=== PATIENT | female | born 1935 | race Caucasian/White ===

== ENCOUNTER 2021-11-11 12:27 | Emergency (ER) | payer MEDICARE, SELFPAY ==
[2021-11-11 13:15] VITALS: BP 140/52; PULSE 76; RESP 18; TEMP 37.1; O2SAT 95; BMI 31.1
--- NOTE | 2021-11-11 13:49 | HMH.EDUTC ---
[facility] [place] Clinical Impression: URI (upper respiratory infection) Qualifiers: URI type: unspecified URI Qualified Code(s): J06.9 - Acute upper respiratory infection, unspecified Disposition: Home, Self-Care Condition on Discharge: Good Instructions: Sinusitis, Acute Bronchitis, DI for Sinusitis Additional Instructions: ? Start antibiotic today. Be sure to complete entire prescription even if feeling better ? Monitor temp. Tylenol every 4 hours as needed and / or ibuprofen every 6 hours as needed ( As long as your primary care physician has told you that it ok to take both. For fever/aches/pains ER if no less than 101 despite Tylenol or Motrin ? Humidifier/vaporizer or hot steamy shower *Tessalon Perles will not cause drowsiness but use at bedtime to help stop cough so that you may get some rest. *Start steroid today. Helps with inflammation therefore, cough and wheezing. Follow directions on the package. Reviewed side effects. Patient reports taking them before. Follow up IMMEDIATELY for new or worsening of symptoms OR no noticeable improvement over the next 48-72 hours. 911 immediately for any life threatening symptoms such as chest pain or difficulty breathing Prescriptions: Benzonatate [Benzonatate 100mg cap] 100 mg PO Q8HP PRN #15 cap PRN Reason: Cough Transmission Status: Pending to [facility] # predniSONE [Deltasone 10mg tablet] 10 mg PO BID 5 Days #10 tab Transmission Status: Pending to [facility] # Fluticasone Propionate [Flonase 50mcg nasal spray 16gm] 1 spr NS DAILY #1 each Transmission Status: Pending to [facility] # Cefdinir [Omnicef 300mg Capsule] 300 mg PO BID #20 cap Transmission Status: Pending to [facility] # Referrals: Provider,Referral, MD [Primary Care Provider] - As needed Time of Disposition: 14:08 Medical Decision Making - Johnson Inquiry Pt receiving controlled substance: No Johnson was queried for this patient: No Vital Signs: 11/11/21 13:15 Temperature 98.7 F Temperature Source Oral Pulse Rate [Left Brachial] 76 Respiratory Rate 18 Blood Pressure [Left Arm] 152/121 H Blood Pressure Mean [Left Arm] 131 Blood Pressure Source [Left Arm] Automatic Cuff Blood Pressure Position [Left Arm] Sitting 02 Sat by Pulse Oximetry 95 Oxygen Delivery Method Room Air Medical Decision Narrative: Patient states that she has taken Prednisone in the past without complications or reactions discussed CXR and patient declined at this time Medication discussed with pharmacy [facility] [place] - General Stated complaint: cough, congestion Time Seen by Provider: 11/11/21 13:49 Mode of Arrival: Ambulatory Source of Information: Patient, Relative Limitations: No Limitations Description of Symptoms (Recalled from Triage Doc. by RN): PATIENT C/O DRY COUGH AND CHEST CONGESTION FOR APPROX 1.5 WEEKS HEENT Symptoms (Recalled from RN notes): No Resp Symptoms (Recalled from RN notes): Yes Skin Symptoms (Recalled from RN notes): No MS Symptoms (Recalled from RN notes): No Functional Status (Recalled from RN notes): WNL - History of Present Illness Provider Complaint: Patient state that she has been having sinus congestion, drainage in the back of her throat and dry cough State that she has been having for over a week States that she isnt coughing anything up and feels like it is in her sinuses but daughter brought her in to get checked States that she thinks she may have a sinus infection she is in from [place] - Related Data Previous Rx's Medication Instructions Recorded Benzonatate [Benzonatate 100mg 100 mg PO Q8HP PRN #15 cap 11/11/21 cap] Cefdinir [Omnicef 300mg Capsule] 300 mg PO BID #20 cap 11/11/21 Fluticasone Propionate [Flonase 1 spr NS DAILY #1 each 11/11/21 50mcg nasal spray 16gm] predniSONE [Deltasone 10mg tablet] 10 mg PO BID 5 Days #10 tab 11/11/21 Allergies Allergy/AdvReac Type Severity Reaction Status Date / Gerald
[2021-11-11 14:12] VITALS: BP 140/52; PULSE 76; RESP 18; TEMP 37.1; O2SAT 95
--- NOTE | 2021-11-23 | IR_ITS ---
APPROVED REPORT Patient Location: Emergent Lingo Cleaner: MERVAT Vaughn RT (R) PROCEDURES Left heart catheterization Left ventriculogram Selective coronary angiogram Drug-eluting stent deployment to the mid dominant right coronary INDICATION Acute inferior ST elevation myocardial infarction, Coronary artery disease Informed consent was obtained prior to the procedure. COMPLICATIONS NONE Estimated Blood Loss: LESS THAN 10 ML TECHNIQUE One percent lidocaine used to anesthetize the right anterior aspect of the wrist. The right radial artery was accessed via the Seldinger technique. A 6 Colombian sheath was placed in the right radial artery. 2.5 mg of verapamil, 800 mcg of nitroglycerin, 1mg Lidocaine and 5000 U Heparin were given through the arterial sheath. A Petta catheter was used to perform right coronary angiography. Therapeutic heparin had already been administered. A Choice PT extra-support wire was placed distally through the occlusion and a 3 mm x 18 mm resolute Christopher stent was deployed at 24 ryan reducing the critical stenosis. An additional 3 mm x 12 mm resolute Christopher stent was placed distal to the first stent yet still overlapping it and deployed at 18 ryan. The balloon was brought back and deployed at 28 ryan to post dilate and mesh the 2 stents. UMAIR I flow was present at the beginning of the procedure with UMAIR-3 flow at the end of the procedure. The same catheter was then used to perform left coronary artery angiography as well as left heart catheterization and left ventriculogram. At the end of the procedure the apparatus was removed the sheath was removed good hemostasis was achieved using TR banding patient was transferred to the postoperative area stable condition ANGIOGRAPHIC RESULTS The left main artery Normal The left anterior descending artery Has mild proximal 10% stenosis with a mid vessel concentric 20% stenosis. The circumflex artery Is a nondominant vessel and has proximal and mid vessel 30% stenoses The right coronary artery Is a large dominant vessel and has proximal tandem 30% stenoses with a focal subtotal occlusion of mid vessel accompanied by UMAIR I flow. At the end of the procedure the proximal 30% stenoses were present with complete resolution of the occlusion reduced to 0% accompanied by UMAIR-3 flow The JOYNER ventriculogram reveals Preserved at 50% The left ventricular end-diastolic pressure 20 mmHg IMPRESSION Acute inferior ST elevation myocardial infarction Successful stenting of the mid dominant right coronary artery subtotal occlusion reduced to 0% with 2 contiguous drug-eluting stents Preserved ejection fraction Borderline elevated LVEDP PLAN 1. Plavix and aspirin 2. LDL less than 55 3. Supportive care for the next 48 hours 4. Risk factor modification 5. Avoidance of tobacco products 6. Cardiac rehabilitation Electronically signed by : Robson Grande MD 11/23/2021 12:22:26
[2021-11-23 12:41] VITALS: BP 124/75; PULSE 51; PULSE 78; RESP 20; TEMP 36.6; O2SAT 87
[2021-11-23 13:45] LABS: CATHL Activated Clotting Time > 400 SEC (74-125)
[2021-11-24 06:42] LABS: Basophils # 0.1 K/mm3 (0-0.2); Basophils % 0.7 % (0.1-2.0); Eosinophils # 0.2 K/mm3 (0.0-0.4); Eosinophils % 3.3 % (0.1-12.0); Hematocrit 37.2 % (37.0-47.0); Hemoglobin 12.4 g/dL (12.2-16.2); Lymphocytes # 1.1 K/mm3 (0.7-4.5); Mean Corpuscular HGB Conc 33.2 g/dL (31.8-35.4); Mean Corpuscular Hemoglobin 30.6 pg (27.0-31.2); Mean Corpuscular Volume 92.2 fl (81-99); Mean Platelet Volume 8.3 fl (7.4-10.4); Monocytes # 0.5 K/mm3 (0.1-1.0); Monocytes % 6.3 % (1.7-9.3); Neutrophils # 5.3 K/mm3 (1.8-7.8); Neutrophils % 73.7 % (37.0-80.0); Platelet Count 410 K/mm3 (142-424); Red Blood Count 4.04 M/mm3 (4.20-5.40); Red Cell Distribution Width 13.3 % (11.5-17.5); White Blood Count 7.1 K/mm3 (4.8-10.8)
[2021-11-24 06:45] LABS: Chloride 111 mmol/L (98-107); Potassium 3.4 mmoL/L (3.5-5.1); Sodium 140 mmol/L (136-145)
[2021-11-24 06:48] LABS: Anion Gap 8.4 mEq/L (5-15); Blood Urea Nitrogen 7 mg/dl (7-17); Calcium 7.6 mg/dl (8.4-10.2); Carbon Dioxide 24 mmol/L (22.0-30.0); Creatinine Clearance Estimated 48 mL/min (50-200); Estimated Glomerular Filt Rate 95 ml/min (>60); GFR (African American) 115 ML/MIN (>60); Glucose 90 mg/dl (74-100)
== END 2021-11-11 14:15 | disposition home or self-care (01) ==
PROVIDERS: Internal Medicine; Emergency Provider Nurse Practitioner
DX: J06.9 Acute upper respiratory infection, unspecified (principal)
CPT/HCPCS: G0463; 80048; 85025; 85347; 99202; J1644; Q9967

== ENCOUNTER 2021-11-23 12:34 | Inpatient (IN) | payer MEDICARE, SELFPAY ==
[2021-11-23] VITALS (17 sets, daily range): BP systolic 114–132; BP diastolic 44–72; PULSE 59–86; RESP 16–20; TEMP 36.6–36.9; O2SAT 89–95; BMI 29.2; BMI 29.4
--- NOTE | 2021-11-23 12:43 | HMH.CNCARD ---
History of Present Illness Consult date: 11/23/21 Requesting physician: Ankur Conn Consult reason: chest pain Chief complaint: chest pain History of present illness: This is an 86-year-old white female who presented with complaints of chest pain. The patient was having heaviness in her chest that was radiating down her bilateral arms and causing numbness. It was associated with shortness of breath. The patient states that this was severe and kept taking her breath away. She called for her daughter and her daughter called EMS. Once she was picked up by EMS the patient had an EKG that was an abnormal and showed a left bundle branch block. The patient was taken directly from EMS to the cardiac catheterization laboratory. She denies any fever, chills, nausea, vomiting, diarrhea, PND or orthopnea. [facility] History I have reviewed the patient's past medical history: Yes Medical History: Reports:: Cerebrovascular Accident, Hyperlipidemia Denies:: Diabetes Mellitus Type 2, Hypertension, Myocardial Infarction *Have you ever received a pneumonia vaccine?: No *Have you received a flu vaccine this season?: No - *Social History Smoking Status: Unknown if ever smoked Alcohol Intake: never *Occupational Status:: other *Travel in the last 8 weeks: Inside the [facility] Family Hx:: Unable to obtain Meds Home Medications Medication Instructions Recorded Confirmed Type Benzonatate [Benzonatate 100mg 100 mg PO Q8HP PRN #15 cap 11/11/21 Rx cap] Cefdinir [Omnicef 300mg Capsule] 300 mg PO BID #20 cap 11/11/21 Rx Fluticasone Propionate [Flonase 1 spr NS DAILY #1 each 11/11/21 Rx 50mcg nasal spray 16gm] predniSONE [Deltasone 10mg tablet] 10 mg PO BID 5 Days #10 tab 11/11/21 Rx Allergies Allergy/AdvReac Type Severity Reaction Status Date / Time No Known Allergies Allergy Verified 11/11/21 13:34 Exam - Constitutional no acute distress, obese - *Routine HEENT Exam Head: Present: normocephalic, atraumatic Eye: Present: EOMI, PERRL ENT: Present: mucous membranes moist - *Routine Neck Exam Present: supple, full ROM, normal carotid upstroke. Absent: JVD, carotid bruit, lymphadenopathy - *Routine Respiratory Exam Present: CTA bilaterally - *Routine Cardiovascular Exam Present: RRR, Normal S1, Normal S2. Absent: murmur - *Routine Abdominal Exam Present: soft, normoactive bowel sounds. Absent: tenderness, distended - *Routine Extremities Exam Present: full ROM, pulses intact, normal capillary refill. Absent: cyanosis, clubbing, edema - *Routine Skin Exam Present: intact, warm. Absent: erythema, rash - *Routine Neurological Exam Present: alert, oriented X3, CN II-XII intact. Absent: sensory deficit, motor deficit - Routine Psychiatric Exam Present: normal affect, normal thought process Review of Systems - Review of Systems Review of systems:: pertinent systems reviewed and negative unless documented below - *Cardiovascular Reports chest pain, Reports chest pain at rest, Reports shortness of breath, Reports shortness of breath with activity, Reports radiating jaw, neck or arm pain Assessment and Plan (1) STEMI (ST elevation myocardial infarction) Status: Acute Category: Medical Code(s): I21.3 - ST elevation (STEMI) myocardial infarction of unspecified site (2) LBBB (left bundle branch block) Status: Acute Category: Medical Code(s): I44.7 - Left bundle-branch block, unspecified (3) HLD (hyperlipidemia) Status: Acute Category: Medical Code(s): E78.5 - Hyperlipidemia, unspecified (4) CVA (cerebral vascular accident) Status: Acute Category: Medical Code(s): I63.9 - Cerebral infarction, unspecified - Assessment and plan all Dx Assessment and Plan for all problems:: Plan: 1. The patient is admitted to the hospital directly to the cardiac catheterization laboratory secondary to chest pain and heaviness. The patient's EKG showed a left bundle branch block which is con
[2021-11-23 12:54] LABS: Influenza A, PCR Not Detected (NotDetected); Influenza B, PCR Not Detected (NotDetected)
[2021-11-23 13:08] LABS: Anion Gap 10.8 mEq/L (5-15); Blood Urea Nitrogen 11 mg/dl (7-17); Calcium 7.3 mg/dl (8.4-10.2); Carbon Dioxide 25 mmol/L (22.0-30.0); Chloride 106 mmol/L (98-107); Creatinine Clearance Estimated 46 mL/min (50-200); Estimated Glomerular Filt Rate 95 ml/min (>60); GFR (African American) 115 ML/MIN (>60); Glucose 107 mg/dl (74-100); Sodium 139 mmol/L (136-145)
[2021-11-23 13:10] LABS: Basophils % 0.7 % (0.1-2.0); Eosinophils # 0.2 K/mm3 (0.0-0.4); Eosinophils % 3.5 % (0.1-12.0); Hematocrit 35.3 % (37.0-47.0); Hemoglobin 11.7 g/dL (12.2-16.2); Lymphocytes # 0.8 K/mm3 (0.7-4.5); Lymphocytes % 13.1 % (10-50); Mean Corpuscular HGB Conc 33.2 g/dL (31.8-35.4); Mean Corpuscular Hemoglobin 30.5 pg (27.0-31.2); Mean Platelet Volume 8.6 fl (7.4-10.4); Monocytes # 0.5 K/mm3 (0.1-1.0); Neutrophils # 4.5 K/mm3 (1.8-7.8); Neutrophils % 74.7 % (37.0-80.0); Platelet Count 386 K/mm3 (142-424); Potassium 2.8 mmoL/L (3.5-5.1); Red Blood Count 3.84 M/mm3 (4.20-5.40); Red Cell Distribution Width 13.2 % (11.5-17.5)
[2021-11-23 13:19] LABS: Alanine Aminotransferase 18 U/L (12-78); Albumin Level 2.6 g/dl (3.5-5.0); Alkaline Phosphatase 50 U/L (38-126); Aspartate Amino Transferase 29 U/L (14-36); Bilirubin,Direct 0.1 mg/dl (0.0-0.4); Bilirubin,Indirect 0.6 mg/dL (0.0-0.9); Bilirubin,Total 0.7 mg/dl (0.2-1.3); Bilirubin,Unconjugated 0.7 mg/dL (0.0-1.1); Total Protein,Serum 5.2 g/dl (6.3-8.2)
[2021-11-23 13:32] LABS: Troponin I 0.11 ng/ml (0.00-0.034)
[2021-11-23 13:36] LABS: Coronavirus 19, PCR Detected (NotDetected)
[2021-11-23 13:50] LABS: Thyroid Stimulating Hormone 1.16 uIU/mL (0.465-4.68)
--- NOTE | 2021-11-23 17:13 | HMH.HP ---
*Admission Date: 11/23/21 *Chief complaint: myocardial infarction *History of present illness: This is an 86-year-old white female who presented with complaints of chest pain. The patient was having heaviness in her chest that was radiating down her bilateral arms and causing numbness. It was associated with shortness of breath. The patient states that this was severe and kept taking her breath away. She called for her daughter and her daughter called EMS. Once she was picked up by EMS the patient had an EKG that was an abnormal and showed a left bundle branch block. The patient was taken directly from EMS to the cardiac catheterization laboratory. She denies any fever, chills, nausea, vomiting, diarrhea, PND or orthopnea. She has no cardiac history. She has some mild dementia. She was taken to the geoscience laboratory technician [facility] shows: The left main artery Normal The left anterior descending artery Has mild proximal 10% stenosis with a mid vessel concentric 20% stenosis. The circumflex artery Is a nondominant vessel and has proximal and mid vessel 30% stenoses The right coronary artery Is a large dominant vessel and has proximal tandem 30% stenoses with a focal subtotal occlusion of mid vessel accompanied by UMAIR I flow. At the end of the procedure the proximal 30% stenoses were present with complete resolution of the occlusion reduced to 0% accompanied by UMAIR-3 flow The JOYNER ventriculogram reveals Preserved at 50% The left ventricular end-diastolic pressure 20 mmHg IMPRESSION Acute inferior ST elevation myocardial infarction Successful stenting of the mid dominant right coronary artery subtotal occlusion reduced to 0% with 2 contiguous drug-eluting stents Preserved ejection fraction Borderline elevated LVEDP PLAN 1. Plavix and aspirin 2. LDL less than 55 3. Supportive care for the next 48 hours 4. Risk factor modification 5. Avoidance of tobacco products 6. Cardiac rehabilitation 1. Start Plavix and Asa for DAPT. 2. Telemetry for 48 hours post STEMI. Original Note: Pt also just tested positive for covid. She was treated for URI last week, just finished her course. I hear a few subtle scattered crackles in both lung huitron. We will be very conservative regarding her management. She is currently pain free and resting comfortably. Review of home meds includes ditropan, which can be assoc w/dementia. We will stop this. [facility] History Medical History: Reports:: Cerebrovascular Accident, Hyperlipidemia Denies:: Diabetes Mellitus Type 2, Hypertension, Myocardial Infarction *Have you ever received a pneumonia vaccine?: Yes *Have you received a flu vaccine this season?: Yes - *Social History Smoking Status: Former smoker Alcohol Intake: never *Occupational Status:: retired Housing: house Household Members: none *Travel in the last 8 weeks: Inside the [place] Family Hx:: Unable to obtain Review of Systems - Constitutional Reports lack of energy - Eyes Denies change in vision - ENT Denies abnormal hearing - *Cardiovascular Reports chest pain, Reports chest pain with activity, Reports shortness of breath, Reports shortness of breath with activity - *Respiratory Reports chest congestion, Reports cough, Reports shortness of breath - *Gastrointestinal Denies abdominal pain - *Genitourinary Denies difficulty urinating - *Musculoskeletal Denies abnormal walking - Integumentary/Breasts Denies yellowing of the skin - *Neurologic Reports confusion - Psychiatric Reports behavioral changes - Endocrine Denies cold intolerance - Hematologic/Lymphatic Denies easy bleeding, Denies easy bruising - Allergic/Immunologic Denies hives Meds Home Medications Medication Instructions Recorded Confirmed Type Amlodipine Besylate 5 mg PO DAILY 11/23/21 11/23/21 History Atorvastatin Calcium [Lipitor 40mg 40 mg PO HS 11/23/21 11/23/21 History Tab] Clopidogrel Bisulfate [Plavix 75mg 75 mg PO
--- NOTE | 2021-11-23 17:40 | XR_ITS ---
PROCEDURE INFORMATION: Exam: XR Chest Exam date and time: 11/23/2021 5:40 PM Age: 86 years old Clinical indication: Shortness of breath; Additional info: Covid TECHNIQUE: Imaging protocol: XR of the chest. Views: 1 view. Total images: 1 COMPARISON: No relevant prior studies available. FINDINGS: Lungs: Pulmonary vasculature grossly normal. Multifocal alveolar opacities in the lung bases and peripheral right upper lobe concerning for multifocal pneumonia. Pleural spaces: Slightly blunted right lateral costophrenic angle which may be related to local airspace disease or small basilar effusion. No pneumothorax. Heart/Mediastinum: Heart size within normal limits for portable AP technique. No tracheal/mediastinal shift. Vasculature: The aorta demonstrates mild ectasia/tortuosity and mild calcific atherosclerosis. Bones/joints: No acute osseous abnormalities are identified. Organs: Probable cholecystectomy clips in the right upper quadrant. IMPRESSION: Multifocal bilateral peripheral alveolar opacities concerning for multifocal pneumonia.
[2021-11-23 18:21] LABS: Chloride 106 mmol/L (98-107)
[2021-11-23 18:22] LABS: Potassium 3.6 mmoL/L (3.5-5.1); Sodium 140 mmol/L (136-145)
[2021-11-23 18:24] LABS: Alanine Aminotransferase 27 U/L (12-78); Alkaline Phosphatase 59 U/L (38-126); Anion Gap 11.6 mEq/L (5-15); Aspartate Amino Transferase 43 U/L (14-36); Bilirubin,Total 0.6 mg/dl (0.2-1.3); Blood Urea Nitrogen 10 mg/dl (7-17); Carbon Dioxide 26 mmol/L (22.0-30.0); Creatinine Clearance Estimated 44 mL/min (50-200); Estimated Glomerular Filt Rate 79 ml/min (>60); GFR (African American) 96 ML/MIN (>60)
[2021-11-23 18:25] LABS: Albumin Level 3.2 g/dl (3.5-5.0); Albumin/Globulin Ratio 1.1 (1.1-1.8); Calcium 8.1 mg/dl (8.4-10.2); Globulin 2.8 g/dL (1.3-3.2); Glucose 201 mg/dl (74-100)
[2021-11-23 20:09] LABS: Troponin I 1.54 ng/ml (0.00-0.034)
[2021-11-24] VITALS (7 sets, daily range): BP systolic 112–156; BP diastolic 56–89; PULSE 67–77; RESP 16–18; TEMP 36.6–37.1; O2SAT 93–95
[2021-11-24 01:58] LABS: Troponin I 2.55 ng/ml (0.00-0.034)
--- NOTE | 2021-11-24 02:42 | ECG_ITS ---
APPROVED REPORT Exam: Resting ECG HR:78 bpm ECG Measurements Heart Rate 78 AXES MI 176 P 60 QRSd 120 QRS 2 QT 434 T 45 QTc 494 Conclusion Sinus rhythm with premature supraventricular complexes Incomplete left bundle branch block Borderline ECG Electronically signed by : Arturo Santos MD 11/25/2021 13:25:19
[2021-11-24 06:59] LABS: Cholesterol 82 mg/dl (140-200); Triglycerides 61 mg/dl (30-150); VLDL Cholesterol 12 mg/dL (0-40)
[2021-11-24 07:08] LABS: Troponin I 1.86 ng/ml (0.00-0.034)
[2021-11-24 07:10] LABS: Direct LDL Cholesterol 40.01 mg/dL (100-129)
[2021-11-24 07:19] LABS: Thyroid Stimulating Hormone 1.72 uIU/mL (0.465-4.68)
--- NOTE | 2021-11-24 07:34 | PC.NURSE ---
patient rested through night. VSS on ra. Denies pain. Sinus arrhythmia on monitor with pac/pvc. Up with sba. Confused to situation.
[2021-11-24 07:44] LABS: Chol/HDL Ratio 2.7 (1-3.5); HDL Cholesterol 30 mg/dl (40-60)
--- NOTE | 2021-11-24 08:17 | HMH.PHAVTE ---
[facility] Pharmacy VTE Monitoring - Patient Demographics Admission date: 11/23/21 Report Date: 11/24/21 Time: 08:17 Allergies/Adverse Reactions: Patient Allergies No Known Allergies Allergy (Verified 11/23/21 13:28) Height: 1.52 m Weight: 69.428 kg Patient Problems: Current Active Problems STEMI (ST elevation myocardial infarction) (Acute) LBBB (left bundle branch block) (Acute) HLD (hyperlipidemia) (Acute) CVA (cerebral vascular accident) (Acute) COVID (Acute) Hypothyroid (Acute) Dementia (Acute) OAB (overactive bladder) (Acute) History of stroke (Chronic) Hypokalemia (Acute) - VTE Risk Labs: VTE Related Lab Results Hgb 11.7 g/dL (12.2-16.2) L 11/23/21 12:33 Hct 35.3 % (37.0-47.0) L 11/23/21 12:33 Plt Count 386 K/mm3 (142-424) 11/23/21 12:33 BUN 10 mg/dl (7-17) 11/23/21 18:00 Creatinine 0.70 mg/dl (0.52-1.04) 11/23/21 18:00 Estimated Creat Clear 44 mL/min (50-200) 11/23/21 18:00 - Prophylaxis VTE Prophylaxis Ordered?: Yes Types of VTE Prophylaxis: TEDS Knee High, Pharmacological Location of Applied Device: Bilateral Lower Extremeties Pharmacologic Type: Enoxaparin
--- NOTE | 2021-11-24 08:47 | HMH.ACPN2 ---
Internal Medicine - PN: Subj *Date: 11/24/21 *Time: 08:47 Interval history: 86-year-old female patient resting quietly in bed no respiratory distress noted. She denies any chest pain or shortness of breath during the night. Dressing to right wrist clean dry and intact neuro/circ checks intact. Explained again to patient she will be inpatient until tomorrow at approximately noon for 48 hours postop STEMI observation. Family is also aware of continuing inpatient. Exam Vital signs and Labs for Last 24 Hours: Temp Pulse Resp BP Pulse Ox 98.1 F 74 18 134/78 95 11/24/21 16:00 11/24/21 16:00 11/24/21 16:00 11/24/21 16:00 11/24/21 16:00 Laboratory Results - last 24 hr 11/23/21 19:24: Troponin I 1.54 H 11/24/21 01:10: Troponin I 2.55 H 11/24/21 06:04: Troponin I 1.86 H, TSH 1.72 D 11/24/21 06:04: Triglycerides 61, Cholesterol 82 L, LDL Cholesterol Direct 40.01 L, VLDL Cholesterol 12, HDL Cholesterol 30 L, Cholesterol/HDL Ratio 2.7 11/24/21 06:04: Sodium 138, Potassium 3.7, Chloride 109 H, Carbon Dioxide 24, Anion Gap 8.7, BUN 7, Creatinine 0.50 L, Estimated Creat Clear 44, Estimated GFR 117, Est GFR ( Amer) 142 D, Glucose 83, Calcium 7.9 L 11/24/21 10:23: D-Dimer 1.40 H 11/24/21 10:23: Ferritin 165, C-Reactive Protein 16.2 H I & O for Last 24 hours: Intake & Output 11/21/21 11/22/21 11/23/21 11/24/21 23:59 23:59 23:59 23:59 Intake Total 600 / 600 1476 / 1476 Balance 600 / 600 1476 / 1476 Weight 150 lb 9 oz 153 lb 1.071 oz - Constitutional no acute distress - *Routine HEENT Exam Head: Present: normocephalic Eye: Present: EOMI ENT: Present: mucous membranes moist - *Routine Neck Exam Present: trachea midline. Absent: tracheal deviation - *Routine Respiratory Exam Present: CTA bilaterally. Absent: accessory muscle use - *Routine Cardiovascular Exam Present: RRR - *Routine Abdominal Exam Present: soft, normoactive bowel sounds. Absent: tenderness, firm - *Routine Extremities Exam Present: full ROM, pulses intact. Absent: cyanosis, clubbing - *Routine Skin Exam Present: intact, dry, warm. Absent: cyanosis, erythema - *Routine Neurological Exam Present: alert, oriented X3. Absent: motor deficit - Routine Psychiatric Exam Present: normal affect, normal thought process. Absent: auditory hallucinations Assessment and Plan (1) STEMI (ST elevation myocardial infarction) Status: Acute Category: Medical Code(s): I21.3 - ST elevation (STEMI) myocardial infarction of unspecified site (2) LBBB (left bundle branch block) Status: Acute Category: Medical Code(s): I44.7 - Left bundle-branch block, unspecified (3) HLD (hyperlipidemia) Status: Acute Category: Medical Code(s): E78.5 - Hyperlipidemia, unspecified (4) CVA (cerebral vascular accident) Status: Acute Category: Medical Code(s): I63.9 - Cerebral infarction, unspecified (5) COVID Status: Acute Category: Medical Code(s): U07.1 - COVID-19 (6) Hypothyroid Status: Acute Category: Medical Code(s): E03.9 - Hypothyroidism, unspecified (7) Dementia Status: Acute Category: Medical Code(s): F03.90 - Unspecified dementia without behavioral disturbance (8) OAB (overactive bladder) Status: Acute Category: Medical Code(s): N32.81 - Overactive bladder (9) History of stroke Status: Chronic Category: Medical Code(s): Z86.73 - Personal history of transient ischemic attack (TIA), and cerebral infarction without residual deficits (10) Hypokalemia Status: Acute Category: Medical Code(s): E87.6 - Hypokalemia - Assessment and plan all Dx Assessment and Plan for all problems:: Rounded with Dr. Conn, all orders per Dr. Conn: 1. Continue current medical regimen 2. Cardiology following 3. Plan for discharge tomorrow afternoon
[2021-11-24 09:04] LABS: Anion Gap 8.7 mEq/L (5-15); Blood Urea Nitrogen 7 mg/dl (7-17); Calcium 7.9 mg/dl (8.4-10.2); Carbon Dioxide 24 mmol/L (22.0-30.0); Chloride 109 mmol/L (98-107); Creatinine Clearance Estimated 44 mL/min (50-200); Estimated Glomerular Filt Rate 117 ml/min (>60); GFR (African American) 142 ML/MIN (>60); Glucose 83 mg/dl (74-100); Potassium 3.7 mmoL/L (3.5-5.1); Sodium 138 mmol/L (136-145)
--- NOTE | 2021-11-24 09:17 | HMH.PULMCON ---
*Admission Date: 11/23/21 *Reason for consult:: COVID-19 pneumonia *History of present illness: Ms. Cortez is a 86-year-old female, [id number] smoking history, last smoked 30 years ago not using any inhalers at baseline, no significant symptom burden presented to the hospital as a stimulant and was found to be positive for COVID-19 pneumonia and pulmonary was called for further management. [facility] History Medical History: Reports:: Cerebrovascular Accident, Hyperlipidemia Denies:: Diabetes Mellitus Type 2, Hypertension, Myocardial Infarction *Have you ever received a pneumonia vaccine?: Yes *Have you received a flu vaccine this season?: Yes - *Social History Smoking Status: Former smoker Alcohol Intake: never *Occupational Status:: retired Housing: house Household Members: none *Travel in the last 8 weeks: [place] the [place] Family Hx:: Unable to obtain ROS - Cons Denies anorexia, Denies body ache(s), Denies chills - ENT Denies bleeding gums - Card Reports shortness of breath with activity, Denies shortness of breath - Resp Respiratory: Denies shortness of breath, Denies cough, Denies non-productive cough, Reports dyspnea on exertion, Denies excessive phlegm production, Denies pain on inspiration, Denies pain with cough, Denies cough with sputum production, Denies pain with breathing - GI Gastrointestingal: Denies: abdominal pain - Psych Denies thoughts of hurting/killing others, Denies thoughts of hurting/killing yourself Meds Home Medications Medication Instructions Recorded Confirmed Type Amlodipine Besylate 5 mg PO DAILY 11/23/21 11/23/21 History Atorvastatin Calcium [Lipitor 40mg 40 mg PO HS 11/23/21 11/23/21 History Tab] Clopidogrel Bisulfate [Plavix 75mg 75 mg PO DAILY 11/23/21 11/23/21 History Tab] Donepezil HCl [Aricept] 5 mg PO HS 11/23/21 11/24/21 History Levothyroxine Sodium 75 mcg PO DAILY 11/23/21 11/23/21 History [Levothyroxine 75mcg (0.075mg) Tab] Montelukast Sodium [Singulair] 10 mg PO PM 11/23/21 11/23/21 History Oxybutynin Chloride [Ditropan Xl] 10 mg PO DAILY 11/23/21 11/23/21 History Pantoprazole Sodium 40 mg PO DAILY 11/23/21 11/23/21 History Allergies Allergy/AdvReac Type Severity Reaction Status Date / Time No Known Allergies Allergy Verified 11/23/21 13:28 Exam - Constitutional Constitutional:: Present: no acute distress, comfortable - HENMT Exam HENMT: Present: normocephalic, atraumatic - Eye Exam Eyes:: Present: normal appearance both eyes and related structures - Neck Exam Neck:: Present: normal visual inspection - Respiratory Exam Respiratory:: Present: able to speak in complete sentences, normal breath sounds, no respiratory distress. Absent: wheezing - Cardiovascular Exam Cardiac:: Present: S1, S2 - GI Exam GI:: Present: soft - Skin Exam Skin: Present: warm, no rash - Neurological Exam Neurological: Present: alert, awake, normal cognition - Extremities Exam Extremities: Present: no cyanosis, no clubbing, no edema Internal Medicine - CN: Reslt - Labs CBC & Chem 7: 11/23/21 12:33 11/24/21 06:04 Labs: Short CBC 11/23/21 Range/Units 12:33 WBC 6.0 (4.8-10.8) K/mm3 Hgb 11.7 L (12.2-16.2) g/dL Hct 35.3 L (37.0-47.0) % Plt Count 386 (142-424) K/mm3 [facility] 11/23/21 11/23/21 11/24/21 12:33 18:00 06:04 Sodium 139 140 138 Potassium 2.8 L* 3.6 D 3.7 Chloride 106 106 109 H Carbon Dioxide 25 26 24 BUN 11 10 7 Creatinine 0.60 0.70 0.50 L Glucose 107 H 201 H D 83 Calcium 7.3 L 8.1 L 7.9 L Cardiac Enzymes 11/23/21 11/23/21 11/24/21 Range/Units 12:33 19:24 01:10 Troponin I 0.11 H 1.54 H 2.55 H (0.00-0.034) ng/ml 11/24/21 Range/Units 06:04 Troponin I 1.86 H (0.00-0.034) ng/ml Liver Function 12/27/21 12/27/21 Range/Units 12:33 18:00 Total Bilirubin 0.7 0.6 (0.2-1.3) mg/dl Direct Bilirubin 0.1 (0.0-0.4) mg/dl AST 29
[2021-11-24 10:57] LABS: C-Reactive Protein 16.2 mg/L (0-4)
--- NOTE | 2021-11-24 11:01 | HMH.PNCARD ---
Subjective Date: 11/24/21 Time: 10:45 Principal diagnosis: stemi Interval history: This is an 86-year-old white female who presented to the emergency department complaints of chest pain and heaviness in her chest. It was radiating down her bilateral arms and causing numbness. It was associated with shortness of breath. This pain was severe. Her daughter called EMS and she was brought in by EMS straight to the [facility] as her EKG was abnormal showing a left bundle branch block consistent with an ST elevation myocardial infarction. The patient was taken directly to the cardiac catheterization laboratory and underwent left cardiac catheterization which showed: The left main artery Normal The left anterior descending artery Has mild proximal 10% stenosis with a mid vessel concentric 20% stenosis. The circumflex artery Is a nondominant vessel and has proximal and mid vessel 30% stenoses The right coronary artery Is a large dominant vessel and has proximal tandem 30% stenoses with a focal subtotal occlusion of mid vessel accompanied by UMAIR I flow. At the end of the procedure the proximal 30% stenoses were present with complete resolution of the occlusion reduced to 0% accompanied by UMAIR-3 flow The JOYNER ventriculogram reveals Preserved at 50% The left ventricular end-diastolic pressure 20 mmHg IMPRESSION Acute inferior ST elevation myocardial infarction Successful stenting of the mid dominant right coronary artery subtotal occlusion reduced to 0% with 2 contiguous drug-eluting stents Preserved ejection fraction Borderline elevated LVEDP PLAN 1. Plavix and aspirin 2. LDL less than 55 3. Supportive care for the next 48 hours 4. Risk factor modification 5. Avoidance of tobacco products 6. Cardiac rehabilitation The patient tolerated the procedure well and will remain on aspirin and Plavix for dual antiplatelet therapy. This morning she denies any chest pain or pressure. She denies any shortness of breath or edema. She denies any fever, chills, nausea, vomiting, diarrhea, PND or orthopnea. The patient really does not recall having a heart attack yesterday. She does not recall having the chest pain either. The patient will be hospitalized for 48 hours to monitor her on telemetry post [place]. She is Covid positive but denies any shortness of breath and maintains normal oxygen saturation on room air. Exam Vital signs and Labs for Last 24 Hours: Temp Pulse Resp BP Pulse Ox 98.2 F 68 18 156/89 H 95 11/24/21 08:00 11/24/21 08:00 11/24/21 08:00 11/24/21 08:00 11/24/21 08:00 Laboratory Results - last 24 hr 11/23/21 12:33: WBC 6.0, RBC 3.84 L, Hgb 11.7 L, Hct 35.3 L, MCV 92.0, MCH 30.5, MCHC 33.2, RDW 13.2, Plt Count 386, MPV 8.6, Neut % (Auto) 74.7, Lymph % (Auto) 13.1, [place] % (Auto) 8.0, Eos % (Auto) 3.5, Baso % (Auto) 0.7, Neut # (Auto) 4.5, Lymph # (Auto) 0.8, [place] # (Auto) 0.5, Eos # (Auto) 0.2, Baso # (Auto) 0.0 11/23/21 12:33: Sodium 139, Potassium 2.8 L*, Chloride 106, Carbon Dioxide 25, Anion Gap 10.8, BUN 11, Creatinine 0.60, Estimated Creat Clear 46, Estimated GFR 95, Est GFR ( Amer) 115, Glucose 107 H, Calcium 7.3 L, Troponin I 0.11 H, TSH 1.16 11/23/21 12:33: Total Bilirubin 0.7, Direct Bilirubin 0.1, Conjugated Bilirubin 0.0, Indirect Bilirubin 0.6, Unconjugated Bilirubin 0.7, AST 29, ALT 18, Alkaline Phosphatase 50, Total Protein 5.2 L, Albumin 2.6 L 11/23/21 12:40: SARS-CoV-2 (PCR) Detected A, Influenza A Untype (PCR) Not detected, Influenza Type B (PCR) Not detected 11/23/21 18:00: Sodium 140, Potassium 3.6 D, Chloride 106, Carbon Dioxide 26, Anion Gap 11.6, BUN 10, Creatinine 0.70, Estimated Creat Clear 44, Estimated GFR 79, Est GFR ( Amer) 96, Glucose 201 H D, Calcium 8.1 L, Total Bilirubin 0.6, AST 43 H D, ALT 27 D, Alkaline Phosphatase 59, Total Protein 6.0 L, Albumin 3.2 L D, Globulin 2.8, Albumin/Globulin Ratio 1.1 11/23/21 19:24: Troponin I 1.54 H 11/24/21 01:10: Troponin I 2.55 H 11/24/21 06:04: Tr
[2021-11-24 11:29] LABS: Ferritin 165 ng/ml (11.1-264)
[2021-11-25] VITALS: BP 110/70; PULSE 68; PULSE 90; RESP 19; TEMP 36.9; O2SAT 93
[2021-11-25 04:00] VITALS: BP 136/72; PULSE 60; PULSE 66; RESP 18; TEMP 36.8; O2SAT 94
[2021-11-25 04:26] VITALS: BMI 29.8
--- NOTE | 2021-11-25 05:27 | PC.NURSE ---
Patient has voiced no complaints to this RN thus far.
[2021-11-25 06:23] LABS: Basophils # 0.1 K/mm3 (0-0.2); Basophils % 1.2 % (0.1-2.0); Eosinophils # 0.3 K/mm3 (0.0-0.4); Eosinophils % 4.9 % (0.1-12.0); Hematocrit 36.6 % (37.0-47.0); Hemoglobin 11.8 g/dL (12.2-16.2); Lymphocytes # 1.3 K/mm3 (0.7-4.5); Lymphocytes % 20.2 % (10-50); Mean Corpuscular HGB Conc 32.3 g/dL (31.8-35.4); Mean Corpuscular Hemoglobin 30.2 pg (27.0-31.2); Mean Corpuscular Volume 93.7 fl (81-99); Mean Platelet Volume 8.6 fl (7.4-10.4); Monocytes # 0.5 K/mm3 (0.1-1.0); Monocytes % 8.4 % (1.7-9.3); Neutrophils % 65.3 % (37.0-80.0); Platelet Count 406 K/mm3 (142-424); Red Cell Distribution Width 13.6 % (11.5-17.5); White Blood Count 6.2 K/mm3 (4.8-10.8)
[2021-11-25 06:38] LABS: Chloride 110 mmol/L (98-107); Sodium 140 mmol/L (136-145)
[2021-11-25 06:39] LABS: Potassium 3.3 mmoL/L (3.5-5.1)
[2021-11-25 06:41] LABS: Blood Urea Nitrogen 6 mg/dl (7-17); Creatinine Clearance Estimated 44 mL/min (50-200); Estimated Glomerular Filt Rate 117 ml/min (>60); GFR (African American) 142 ML/MIN (>60)
[2021-11-25 06:42] LABS: Anion Gap 6.3 mEq/L (5-15); Calcium 7.9 mg/dl (8.4-10.2); Carbon Dioxide 27 mmol/L (22.0-30.0); Glucose 93 mg/dl (74-100)
[2021-11-25 08:00] VITALS: BP 157/76; PULSE 61; RESP 16; TEMP 37.2; O2SAT 95
--- NOTE | 2021-11-25 09:15 | P.PN_ITS ---
Internal Medicine - PN: Subj *Date: 11/25/21 *Time: 09:15 Assessment and Plan (1) STEMI (ST elevation myocardial infarction) Status: Acute Category: Medical Code(s): I21.3 - ST elevation (STEMI) myocardial infarction of unspecified site (2) LBBB (left bundle branch block) Status: Acute Category: Medical Code(s): I44.7 - Left bundle-branch block, unspecified (3) HLD (hyperlipidemia) Status: Acute Category: Medical Code(s): E78.5 - Hyperlipidemia, unspecified (4) CVA (cerebral vascular accident) Status: Acute Category: Medical Code(s): I63.9 - Cerebral infarction, unspecified (5) COVID Status: Acute Category: Medical Code(s): U07.1 - COVID-19 (6) Hypothyroid Status: Acute Category: Medical Code(s): E03.9 - Hypothyroidism, unspecified (7) Dementia Status: Acute Category: Medical Code(s): F03.90 - Unspecified dementia without behavioral disturbance (8) OAB (overactive bladder) Status: Acute Category: Medical Code(s): N32.81 - Overactive bladder (9) History of stroke Status: Chronic Category: Medical Code(s): Z86.73 - Personal history of transient ischemic attack (TIA), and cerebral infarction without residual deficits (10) Hypokalemia Status: Acute Category: Medical Code(s): E87.6 - Hypokalemia - Assessment and plan all Dx Assessment and Plan for all problems:: #COVID-19 pneumonia: Ms. Ramírez is a 86-year-old female presented to hospital chest pain status post revascularization procedure found to be having COVID-19 pneumonia. Patient remained on room air with saturations maintained at 95%. Chest x-ray showed bilateral patchy opacities right greater than left along with right sided pleural effusion. CRP mildly elevated at 16.2. Patient respiratory status remained at baseline. On room air saturating 96 to 97%. She believes that she acquired COVID-19 pneumonia from her recent family graduating for [employer]. She is currently staying with her daughter. I have advised the patient to call her family members to inform them that she was tested positive for COVID-19 pneumonia. Interval update: Patient received her monoclonal antibody infusion. Tolerated well. Continue to remain on RA with O2 sats maintained 95% and above. Plan: -Given patient's symptoms are at baseline with no respiratory distress. on RA - will recommend monoclonal antibody infusion. - Azithromycin x 5 days - Albuterol PRN for SOB/ Wheezing #Thank you for involving pulmonary in this patient care. We will continue to follow.
--- NOTE | 2021-11-25 11:29 | HMH.PNCARD ---
Subjective Date: 11/25/21 Time: 11:00 Principal diagnosis: stemi Interval history: This is an 86-year-old white female who presented to the hospital with complaints of chest pain and heaviness that radiated to her bilateral arms causing numbness. It was associated with shortness of breath. The patient was found to have a STEMI and was taken to the cardiac catheterization laboratory. She underwent 2 stents to the right coronary artery. She tolerated the procedure well. She will remain on aspirin and Plavix for dual antiplatelet therapy. This morning she denies any chest pain or pressure. She denies any shortness of breath or edema. She has denies any fever, chills, nausea, vomiting, diarrhea, PND or orthopnea. The patient will be 48 hours status post STEMI today and she can be discharged from a cardiac standpoint. She is COVID-19 positive. Exam Vital signs and Labs for Last 24 Hours: Temp Pulse Resp BP Pulse Ox 98.9 F 61 16 157/76 H 95 11/25/21 08:00 11/25/21 08:00 11/25/21 08:00 11/25/21 08:00 11/25/21 08:00 Laboratory Results - last 24 hr 11/24/21 10:23: Ferritin 165 11/25/21 05:47: WBC 6.2, RBC 3.90 L, Hgb 11.8 L, Hct 36.6 L, MCV 93.7, MCH 30.2, MCHC 32.3, RDW 13.6, Plt Count 406, MPV 8.6, Neut % (Auto) 65.3, Lymph % (Auto) 20.2, [place] % (Auto) 8.4, Eos % (Auto) 4.9, Baso % (Auto) 1.2, Neut # (Auto) 4.0, Lymph # (Auto) 1.3, [place] # (Auto) 0.5, Eos # (Auto) 0.3, Baso # (Auto) 0.1 11/25/21 05:47: Sodium 140, Potassium 3.3 L, Chloride 110 H, Carbon Dioxide 27, Anion Gap 6.3, BUN 6 L, Creatinine 0.50 L, Estimated Creat Clear 44, Estimated GFR 117, Est GFR ( Amer) 142, Glucose 93, Calcium 7.9 L I & O for Last 24 hours: Intake & Output 11/22/21 11/23/21 11/24/21 11/25/21 23:59 23:59 23:59 23:59 Intake Total 600 / 600 1476 / 1476 240 / 240 Balance 600 / 600 1476 / 1476 240 / 240 Weight 150 lb 9 oz 153 lb 1.071 oz 152 lb 1.903 oz Narrative: Telemetry strip is sinus rhythm. - Constitutional no acute distress, average body habitus - *Routine HEENT Exam Head: Present: normocephalic, atraumatic Eye: Present: EOMI, PERRL ENT: Present: mucous membranes moist - *Routine Neck Exam Present: supple, full ROM, normal carotid upstroke. Absent: JVD, carotid bruit, lymphadenopathy - *Routine Respiratory Exam Present: CTA bilaterally - *Routine Cardiovascular Exam Present: RRR, Normal S1, Normal S2. Absent: murmur - *Routine Abdominal Exam Present: soft, normoactive bowel sounds. Absent: tenderness, distended - *Routine Extremities Exam Present: full ROM, pulses intact, normal capillary refill. Absent: cyanosis, clubbing, edema - *Routine Skin Exam Present: intact, warm. Absent: erythema, rash - *Routine Neurological Exam Present: alert, oriented X3, CN II-XII intact. Absent: sensory deficit, motor deficit Progress Note: A&P (1) STEMI (ST elevation myocardial infarction) Status: Acute (2) LBBB (left bundle branch block) Status: Acute (3) HLD (hyperlipidemia) Status: Acute (4) CVA (cerebral vascular accident) Status: Acute (5) COVID Status: Acute (6) Hypothyroid Status: Acute (7) Dementia Status: Acute (8) Hypokalemia Status: Acute (9) HLD (hyperlipidemia) Status: Chronic (10) Hypertension Status: Chronic (11) Coronary artery disease Status: Chronic (12) Status post coronary artery stent placement Status: Chronic Assessment and Plan for All Diagnoses:: Plan: 1. The patient was admitted to the hospital with a STEMI. She underwent left cardiac catheterization had 2 stents placed to her right coronary artery. She tolerated the procedure well. She will remain on aspirin and Plavix for dual antiplatelet therapy. 2. Her blood pressure is elevated this morning. We will increase her lisinopril to 20 mg p.o. daily for better blood pressure control. 3. Her LDL goal is less than 55. Her LDL is currently 40. She is on a stat
[2021-11-25 12:00] VITALS: BP 147/90; PULSE 60; PULSE 92; RESP 20; TEMP 36.9; O2SAT 95
--- NOTE | 2021-11-25 13:45 | HMH.DCSUM ---
General - General Admission date:: 11/23/21 Discharge date: 11/25/21 HPI HPI: This is an 86-year-old white female who presented with complaints of chest pain. The patient was having heaviness in her chest that was radiating down her bilateral arms and causing numbness. It was associated with shortness of breath. The patient states that this was severe and kept taking her breath away. She called for her daughter and her daughter called EMS. Once she was picked up by EMS the patient had an EKG that was an abnormal and showed a left bundle branch block. The patient was taken directly from EMS to the cardiac catheterization laboratory. She denies any fever, chills, nausea, vomiting, diarrhea, PND or orthopnea. She has no cardiac history. She has some mild dementia. She was taken to the manager cath lab [facility] shows: The left main artery Normal The left anterior descending artery Has mild proximal 10% stenosis with a mid vessel concentric 20% stenosis. The circumflex artery Is a nondominant vessel and has proximal and mid vessel 30% stenoses The right coronary artery Is a large dominant vessel and has proximal tandem 30% stenoses with a focal subtotal occlusion of mid vessel accompanied by UMAIR I flow. At the end of the procedure the proximal 30% stenoses were present with complete resolution of the occlusion reduced to 0% accompanied by UMAIR-3 flow The JOYNER ventriculogram reveals Preserved at 50% The left ventricular end-diastolic pressure 20 mmHg IMPRESSION Acute inferior ST elevation myocardial infarction Successful stenting of the mid dominant right coronary artery subtotal occlusion reduced to 0% with 2 contiguous drug-eluting stents Preserved ejection fraction Borderline elevated LVEDP PLAN 1. Plavix and aspirin 2. LDL less than 55 3. Supportive care for the next 48 hours 4. Risk factor modification 5. Avoidance of tobacco products 6. Cardiac rehabilitation 1. Start Plavix and Asa for DAPT. 2. Telemetry for 48 hours post STEMI. Original Note: Pt also just tested positive for covid. She was treated for URI last week, just finished her course. I hear a few subtle scattered crackles in both lung huitron. We will be very conservative regarding her management. She is currently pain free and resting comfortably. Review of home meds includes ditropan, which can be assoc w/dementia. We will stop this. Hospital Course Hospital Course: Laboratory Tests 11/23/21 11/23/21 11/23/21 12:33 12:33 12:33 WBC 6.0 RBC 3.84 L Hgb 11.7 L Hct 35.3 L MCV 92.0 MCH 30.5 MCHC 33.2 RDW 13.2 Plt Count 386 MPV 8.6 Neut % (Auto) 74.7 Lymph % (Auto) 13.1 [place] % (Auto) 8.0 Eos % (Auto) 3.5 Baso % (Auto) 0.7 Neut # (Auto) 4.5 Lymph # (Auto) 0.8 [place] # (Auto) 0.5 Eos # (Auto) 0.2 Baso # (Auto) 0.0 D-Dimer Sodium 139 Potassium 2.8 L* Chloride 106 Carbon Dioxide 25 Anion Gap 10.8 BUN 11 Creatinine 0.60 Estimated Creat Clear 46 Estimated GFR 95 Est GFR ( Amer) 115 Glucose 107 H Calcium 7.3 L Ferritin Total Bilirubin 0.7 Direct Bilirubin 0.1 Conjugated Bilirubin 0.0 Indirect Bilirubin 0.6 Unconjugated Bilirubin 0.7 AST 29 ALT 18 Alkaline Phosphatase 50 Troponin I 0.11 H C-Reactive Protein Total Protein 5.2 L Albumin 2.6 L Globulin Albumin/Globulin Ratio Triglycerides Cholesterol LDL Cholesterol Direct VLDL Cholesterol HDL Cholesterol Cholesterol/HDL Ratio TSH 1.16 SARS-CoV-2 (PCR) Influenza A Untype (PCR) Influenza Type B (PCR) 11/23/21 11/23/21 11/23/21 12:40 18:00 19:24 WBC RBC Hgb Hct MCV MCH MCHC RDW Plt Count MPV Neut % (Auto) Lymph % (Auto) [place] % (Auto) Eos % (Auto) Baso % (Auto) Neut # (Auto) Lymph # (Auto) [place] # (Auto) Eos # (Auto)
--- NOTE | 2021-11-25 14:59 | HMH.PHACLD ---
Missy Ramírez IS ON THE APPROPRIATE discharge medications FOLLOWING A HEART CATH. PATIENT IS COVID POSITIVE AND THEREFORE WAS NOT COUNSELED BUT MEDICATIONS WERE REVIEWED FOR APPROPRIATENESS. SHE IS ON THE FOLLOWING: -ASA -PLAVIX -CARVEDILOL -LISINOPRIL -ATORVASTATIN
== END 2021-11-25 15:50 | disposition home or self-care (01) | DRG 246 ==
LOC: 2ND 12:35
PROVIDERS: Internal Medicine; Internal Medicine Pulmonary Disease; Nurse Practitioner Family; Admitting Provider Family Medicine; Visit Provider Family Medicine
DX: I21.19 ST elevation (STEMI) myocardial infarction involving other coronary artery of inferior wall (principal); U07.1 COVID-19; J12.82 Pneumonia due to coronavirus disease 2019; F03.90 Unspecified dementia, unspecified severity, without behavioral disturbance, psychotic disturbance, mood disturbance, and anxiety; Z86.73 Personal history of transient ischemic attack (TIA), and cerebral infarction without residual deficits; E78.5 Hyperlipidemia, unspecified; Z87.891 Personal history of nicotine dependence; E87.6 Hypokalemia; I25.10 Atherosclerotic heart disease of native coronary artery without angina pectoris; N32.81 Overactive bladder; E03.9 Hypothyroidism, unspecified
CPT/HCPCS: M0245; 36415; 71045; 80048; 80053; 80061; 80076; 82728; 84443; 84484; 85025; 85378; 86140; 89220; 92941; 93005; 93306; 93458; 99152; C1725; C1769; C1876; C9606; C9803; J0456; J1644; U0003; U0005

== ENCOUNTER 2021-12-15 14:53 | Outpatient (RCR) | payer MEDICARE, SELFPAY | END 2022-02-23 14:30 | disposition home or self-care (01) | LOC: PT 14:53 | PROVIDERS: Visit Provider Internal Medicine | DX: I25.10 Atherosclerotic heart disease of native coronary artery without angina pectoris (principal); Z95.5 Presence of coronary angioplasty implant and graft | CPT/HCPCS: 93798 ==

== ENCOUNTER → 2022-01-25 11:40 | Outpatient (CLI) | payer MEDICARE, SELFPAY ==
[2022-01-25 13:19] LABS: Chloride 103 mmol/L (98-107)
[2022-01-25 13:20] LABS: Potassium 4.5 mmoL/L (3.5-5.1); Sodium 136 mmol/L (136-145)
[2022-01-25 13:23] LABS: Blood Urea Nitrogen 19 mg/dl (7-17); Calcium 8.6 mg/dl (8.4-10.2); Estimated Glomerular Filt Rate 79 ml/min (>60); GFR (African American) 96 ML/MIN (>60); Glucose 99 mg/dl (74-100)
[2022-01-25 14:27] LABS: Vitamin B12 318 pg/mL (239-931)
[2022-01-25 14:40] LABS: Folate > 20.00 ng/mL
[2022-01-25 14:54] LABS: Anion Gap 9.5 mEq/L (5-15); Carbon Dioxide 28 mmol/L (22.0-30.0)
[2022-02-28 21:06] LABS: Antinuclear Antibodies (ANA) Negative
== END ==
PROVIDERS: Family Medicine; Visit Provider Specialist
DX: R41.3 Other amnesia (principal)
CPT/HCPCS: 36415; 80048; 82607; 82746; 86038

== ENCOUNTER → 2022-02-02 14:56 | Outpatient (CLI) | payer MEDICARE, SELFPAY | PROVIDERS: PCP Family Medicine; Visit Provider Specialist | DX: R41.3 Other amnesia (principal); J43.9 Emphysema, unspecified | CPT/HCPCS: 94762 ==

== ENCOUNTER → 2022-02-04 10:18 | Outpatient (CLI) | payer MEDICARE, SELFPAY ==
--- NOTE | 2022-02-04 10:24 | CA_ITS ---
FINAL REPORT TECHNIQUE: Color Doppler, duplex Doppler and merritt scale sonography of the bilateral neck arterial vasculature was performed. Velocities were measured in the carotid arteries. Stenosis evaluation based on the validated velocity criteria. CLINICAL HISTORY: bruit, htn, HLD, DM, CVA/TIA FINDINGS: The peak systolic velocity of the right common carotid artery is 98 cm/s. The peak systolic velocity of the right internal carotid artery is 75 cm/s and end diastolic velocity 24 cm/s. A small amount of plaque is present. The right external carotid artery is patent. The right vertebral artery is patent with antegrade flow. The peak systolic velocity of the left common carotid artery is 89 cm/s. The peak systolic velocity of the left internal carotid artery is 85 cm/s and end diastolic velocity 29 cm/s. A small amount of plaque is present. The left external carotid artery is patent.The left vertebral artery is patent with antegrade flow. IMPRESSION: Less than 50% bilateral carotid stenoses. Bilateral patent vertebral arteries with antegrade flow. If indicated, CTA or MRA could further evaluate. Reviewed, Interpreted and Dictated by Wolfgang Brown III, MD Transcribed by Jessika Rolle Authenticated by Wolfgang Brown III, MD on 02/04/2022 01:06:48 PM [facility]
--- NOTE | 2022-02-04 11:04 | MR_ITS ---
FINAL REPORT CLINICAL HISTORY: history CVA, memory loss. HX STROKE [id number] AGO. MEMORY LOSS. DIAGNOSED EARLY STAGES OF DEMENTIA. FINDINGS: Multiplanar MR imaging of the brain was performed without contrast. There is a chronic lacunar infarct in the right fritz. There is mild age-appropriate atrophy. There are scattered foci of increased T2 signal in the cerebral white matter that have a nonspecific appearance but likely represent moderate chronic ischemic/gliotic changes. There is no evidence of intracranial hemorrhage or mass. No abnormal ventricular dilatation is identified. No abnormal extra-axial fluid collection is seen. No abnormality is seen on the diffusion weighted images. The posterior fossa and brainstem are unremarkable. Normal major vessel vascular flow voids are seen. IMPRESSION: Chronic lacunar infarct in the right fritz, mild atrophy and moderate chronic ischemic/gliotic changes. No acute intracranial abnormality. Reviewed, Interpreted and Dictated by Wolfgang Brown III, MD Transcribed by Jessika Rolle Authenticated by Wolfgang Brown III, MD on 02/04/2022 01:26:25 PM [facility]
== END ==
PROVIDERS: PCP Family Medicine; Visit Provider Family Medicine
DX: R09.89 Other specified symptoms and signs involving the circulatory and respiratory systems (principal); R41.3 Other amnesia
CPT/HCPCS: 70551; 93880

== ENCOUNTER 2024-10-22 17:41 | Emergency (ER) | payer MEDICARE, SELFPAY ==
[2024-10-22 17:55] VITALS: BP 171/55; PULSE 71; RESP 19; TEMP 36.6; O2SAT 95; BMI 30.2
--- NOTE | 2024-10-22 18:11 | ED_ITS ---
Discharge Plan Prescriptions Prescriptions: New levofloxacin 250 mg tablet 250 mg PO DAILY 5 Days Qty: 5 0RF No Action atorvastatin 40 mg tablet 40 mg PO HS Patient Comments: TAKE 1 TABLET BY MOUTH AT BEDTIME donepezil 10 mg tablet 10 mg PO DAILY alendronate 70 mg tablet 70 mg PO DAILY Patient Comments: TAKE 1 TABLET BY MOUTH WEEKLY clopidogrel 75 mg tablet 75 mg PO DAILY Patient Comments: TAKE 1 TABLET BY MOUTH DAILY amlodipine 5 mg tablet 5 mg PO DAILY Patient Comments: TAKE 1 TABLET BY MOUTH DAILY levothyroxine 75 mcg tablet 75 mcg PO DAILY Patient Comments: TAKE 1 TABLET BY MOUTH DAILY lisinopril 10 mg tablet 10 mg PO DAILY Patient Comments: TAKE 1 TABLET BY MOUTH DAILY metoprolol succinate 25 mg tablet extended release 24 hr 25 mg PO HS Patient Comments: TAKE 1 TABLET BY MOUTH AT BEDTIME Referrals Follow up/Referrals: Provider,Referral, MD [Primary Care Provider] - See instructions Activity Restrictions/Add. Instructions Additional Instructions/Restrictions: Drink plenty of fluids. Take tylenol for pain or fever. Take the medications as directed. Follow up with your regular doctor. GO TO THE ER FOR ANY WORSENING SYMPTOMS We will culture the urine. That will tell what bacteria is causing your infection and which antibiotics will treat it best.This test takes 3 days to complete. Clinical Impressions Clinical Impression: UTI (urinary tract infection), Lower abdominal pain Instructions Patient Instructions: Urinary Tract Infection, Urine Culture, DI for Urinary Tract Infection (UTI), Levofloxacin Print Language Print Language: Kiswahili Discharge ED Provider: Timothy Arthur [facility] General Stated complaint: pain in lower abdomen Mode of Arrival: Ambulatory Source of Information: Patient Limitations: No Limitations Time Seen by Provider: 10/22/24 18:10 Description of Symptoms (Recalled from Triage Doc. by RN): PATIENT C/O PAIN TO RIGHT GROIN AREA THAT STARTED THIS MORNING, NO KNOWN INJURY HEENT Symptoms (Recalled from RN notes): No Resp Symptoms (Recalled from RN notes): No Skin Symptoms (Recalled from RN notes): No MS Symptoms (Recalled from RN notes): Yes Functional Status (Recalled from RN notes): WNL History of Present Illness Provider Complaint: She states that she has had pain in her suprapubic area since this morning. She denies any urinary symptoms, but her daughter states that the patient is a poor historian due to dementia. They deny any fever. Related Data Home Medications ?Medication ?Instructions ?Recorded ?Confirmed alendronate 70 mg tablet 70 mg PO DAILY 10/22/24 10/22/24 amlodipine 5 mg tablet 5 mg PO DAILY 10/22/24 10/22/24 atorvastatin 40 mg tablet 40 mg PO HS 10/22/24 10/22/24 clopidogrel 75 mg tablet 75 mg PO DAILY 10/22/24 10/22/24 donepezil 10 mg tablet 10 mg PO DAILY 10/22/24 10/22/24 levothyroxine 75 mcg tablet 75 mcg PO DAILY 10/22/24 10/22/24 lisinopril 10 mg tablet 10 mg PO DAILY 10/22/24 10/22/24 metoprolol succinate 25 mg 25 mg PO HS 10/22/24 10/22/24 tablet,extended release 24 hr Previous Rx's ?Medication ?Instructions ?Recorded levofloxacin 250 mg tablet 250 mg PO DAILY 5 days #5 tabs 10/22/24 Allergies Allergy/AdvReac Type Severity Reaction Status Date / Time No Known Allergies Allergy Verified 02/04/22 13:56 Worker's Comp Is this a Worker's Comp case?: No [facility] Disclaimer: The information contained in this section may have been updated after the patient was seen, as this information can be updated by other users. Medical History (Updated 10/22/24 @ 19:04 by Timothy Arthur APRN) Thyroid disease History of stroke Asthma History of heart attack Hyperlipidemia Hypertension Surgical History (Updated 10/22/24 @ 18:07 by Angeles Mondragon RN) History of hysterectomy History of cholecystectomy Social History Smoking Status: Former smoker alcohol intake: never substance use type: denies use current occupational status: retired household members: family housing: house caffeine: No ROS Obtained: Yes All systems reviewed & no additional complaints except as documented Constitutional Constitutional: Reports system reviewed and no additional complaints, except as documented, Denies chills and Denies fever(s) Eyes Eyes: Denies eye discharge ENT Ears, Nose, Mouth, and Throat: Denies dysphagia, Denies sore throat and Denies throat swelling Cardiovascular Cardiovascular: Denies chest pain and Denies dyspnea Respiratory Respiratory: Denies chest congestion, Denies cough and Denies dyspnea Gastrointestinal Gastrointestingal: Denies abdominal pain, constipation, diarrhea, dysphagia, nausea or vomiting Genitourinary Female Genitourinary: Reports as per HPI, Reports dysuria, Reports urinary frequency, Denies urinary incontinence, Reports urinary hesitancy and Denies urinary urgency Musculoskeletal Musculoskeletal: Denies arthralgias and Reports back pain Integumentary/Breasts Skin/Breast: Denies rash Neurologic Neurologic: Denies paresthesias Allergic/Immunologic Allergic/Immunologic: Denies throat swelling Physical Exam General General appearance: alert and in no apparent distress Head Head exam: atraumatic and normocephalic Eye Eye exam: Present normal appearance, PERRL and EOMI ENT ENT exam: Present normal exam, mucous membranes moist, TM's normal bilaterally and normal external ear exam Neck Neck exam: Present normal inspection, full ROM and trachea midline; Absent tenderness, meningismus or lymphadenopathy Chest Chest inspection: Present normal inspection and symmetric chest wall rise; Absent tenderness Respiratory Respiratory exam: Present normal lung sounds bilaterally; Absent respiratory distress, wheezes or stridor Cardiovascular Cardiovascular exam: Present regular rate, normal rhythm and normal heart sounds Abdominal Exam Abdominal exam: Present soft and normal bowel sounds; Absent distention, tenderness, guarding, rebound, rigidity, incision, psoas sign, obturator sign, heel tap sign, Khoury's sign, Rovsing's sign or tenderness at McBurney's Point Extremities Exam Extremities exam: Present normal inspection, full ROM and normal capillary refill; Absent tenderness, edema, joint swelling, calf tenderness or cyanosis Back Exam Back exam: Present normal inspection and full ROM; Absent tenderness, CVA tenderness (R) or CVA tenderness (L) Neurological Exam Neurological exam: Present alert, oriented X3 and normal gait Psychiatric Psychiatric exam: Present normal affect and normal mood Skin Skin exam: Present warm, dry, intact and normal color Lymphatic Lymphatic Findings: no adenopathy Medical Decision Making Medical Records Medical records reviewed: No I reviewed the patient's medical records. Screening: Per USPSTF and CDC recommendations, given the prevalence of disease in our region, it is our hospital?s policy to screen for HIV and viral Hepatitis for all patients aged 18 and over and those with ongoing risk factors. [place] Inquiry Pt receiving controlled substance: No Vital Signs: 10/22/24 17:55 Temperature 97.9 F Temperature Source Oral Pulse Rate [Right Brachial] 71 Respiratory Rate 19 Blood Pressure [Right Arm] 171/55 H Blood Pressure Mean [Right Arm] 93 Blood Pressure Source [Right Arm] Automatic Cuff Blood Pressure Position [Right Arm] Sitting 02 Sat by Pulse Oximetry 95 Oxygen Delivery Method Room Air Lab Data Lab results reviewed: Yes I reviewed the patient's lab results.
[2024-10-22 18:48] LABS: Apearance,Urine Cloudy (Clear); Bilirubin,Urine Negative (Negative); Blood, Urine Trace (Negative); Color,Urine Yellow (Yellow); Glucose,Urine (UA) Negative (Negative); Ketones,Urine 15 (Negative); PH,Urine 5.5 (5.0-8.5); Protein,Urine Negative (Negative); Specific Gravity, Urine 1.025 (1.005-1.030); UTC Leukocyte Esterase,Urine 1+ (Negative); UTC Nitrate,Urine Negative (Negative); Urobilinogen,Urine 0.2 EU/dl (0.2)
[2024-10-22] MEDS: levoFLOXacin 500MG TAB 500 MG PO (18:58)
[2024-10-22 19:05] VITALS: BP 171/55; PULSE 71; RESP 19; TEMP 36.6; O2SAT 95
== END 2024-10-22 19:13 | disposition home or self-care (01) ==
PROVIDERS: Emergency Provider Nurse Practitioner Family
DX: N39.0 Urinary tract infection, site not specified (principal); R10.9 Unspecified abdominal pain; R30.0 Dysuria; R35.0 Frequency of micturition
CPT/HCPCS: 81003; 87086; 87088; 87186; 99212; G0381

== ENCOUNTER 2025-04-10 14:17 | Outpatient (CLI) | payer MEDICARE, SELFPAY ==
--- NOTE | 2025-04-10 14:21 | XR_ITS ---
FINAL REPORT CLINICAL HISTORY: big toe pain x2-3 days FINDINGS: RIGHT FOOT 3 views of the right foot were obtained. There is no acute fracture or dislocation. Visualized joint spaces are normally aligned. Soft tissues are unremarkable. IMPRESSION: No acute bony abnormality. Reviewed, Interpreted and Dictated by Martin Nicholson MD Transcribed by Jessika Rolle Authenticated and [facility]
== END 2025-04-10 23:59 | disposition home or self-care (01) ==
LOC: RAD 14:19
PROVIDERS: PCP Family Medicine Adult Medicine; Visit Provider Nurse Practitioner
DX: M79.676 Pain in unspecified toe(s) (principal)
CPT/HCPCS: 73630